=== PATIENT | male | born 1965 | race Caucasian/White ===

== ENCOUNTER 2019-06-27 19:15 | Emergency (ER) | payer SELFPAY ==
[~2019-06-27] VITALS: Ht 180.3 cm; Wt 84.7 kg
[2019-06-27 19:35] VITALS: Ht 180.3 cm; Wt 84.7 kg
[2019-06-27] MEDS ORDERED: AZITHROMYCIN 500 MG TAB PO ONE (21:00)
[2019-06-27] MEDS ORDERED: CEFTRIAXONE 250 MG INJ IM ONE (21:00)
[2019-06-27 21:39] VITALS: BP 132/89; PULSE 52; RESP 18
== END 2019-06-27 21:40 | disposition home or self-care (01) ==
LOC: FTE 19:15
DX: N34.2 Other urethritis (principal)
CPT/HCPCS: 81003; 87086; 87591; 96372; 99284; J0696